=== PATIENT | female | born 1965 | race Caucasian/White ===

== ENCOUNTER → 2017-08-13 | Outpatient (CLI) | payer MEDICARE, OTHER ==
[~2017-08-13] MED LIST: ANASTROZOLE1 MG PO; BACTRIM DS TAB1 EACH PO; BIOTIN; CALCIUM600 MG PO; CLARITIN10 M1 PO; CRANBERRY PO; CRANBERRY450 MG PO; CRESTOR10 MG PO; DEXILANT60 MG PO; EVOXAC30 MG PO; FOLIC ACID PO; FOLIC ACID0.4 MG PO; GABAPENTIN300 MG PO; GABAPENTIN400 MG PO; KEFLEX500 MG PO; LEFLUNOMIDE10 MG PO; LIDOCAINE PATCH TOP; LISINOPRIL10 MG PO; METHOCARBAMOL500 MG PO; METHOCARBAMOL750 MG PO; METOPROLOL SUC100 MG PO; METOPROLOL SUCC50 MG PO; MS CONTIN30 MG PO; NEXIUM40 MG PO; OMEPRAZOLE40 MG PO; PROMETHAZINE HC25 M1 PO; SERTRALINE HCL50 MG PO; SULFASALAZINE500 MG PO; TYLENOL WITH C1 EACH PO; ULTRAM 50MG50 MG PO; VALTREX500 MG PO; VESICARE5 MG PO; VITAMIN B-121000 MCG PO; VITAMIN D1000 UNI1 PO; [UNRECOGNIZED DRUG - OTHER] PO
--- NOTE | 2017-08-13 12:44 | Diagnostic Imaging Report ---
PROCEDURE:X-RAY ABDOMEN - KUB COMPARISON:Patients [facility], DX, ABDOMEN-1VIEW (KUB), 01/18/2017, 7:22. INDICATIONS:calculus of kidney FINDINGS: There is a non-obstructed bowel-gas pattern, with large amount of retained stool, which obscures the renal shadows. Interval removal of previously visualized left double-J internal ureteral stent. No definite calcifications project over the renal shadows, expected course of ureters or bladder. There are no calcifications projected over the renal shadows, expected course of the ureters or bladder. A Stable left phlebolith. No acute bony abnormality. CONCLUSION: Normal abdominal no radiopaque densities project over the genitourinary system. Jose Raul Miller M.D. Dictated by: Jose Raul Miller M.D. on 08/13/2017 at 12:46 Electronically approved by: Jose Raul Miller M.D. on 08/13/2017 at 12:46
== END ==
LOC: RAD 10:35
PROVIDERS: ATTEND Urology
DX: Z87.442 Personal history of urinary calculi (principal)
CPT/HCPCS: 74018

== ENCOUNTER → 2017-12-19 | Outpatient (CLI) | payer MEDICARE, OTHER ==
--- NOTE | 2017-12-19 12:08 | Diagnostic Imaging Report ---
Exam: Radiographs of the abdomen History: Abdominal pain. History of kidney stones. Comparison 12/04/2016 Findings: There is a nonobstructive bowel gas pattern with a moderate amount of retained feces in the colon. Surgical clips are seen in the gallbladder fossa. Punctate right and left renal stones are seen. A small phlebolith is seen in the left pelvis. No acute osseous abnormality. Impression: Punctate right and left renal stones. Signed by: Dr. Byron Dodson M.D. on 12/19/2017 12:04 PM
== END ==
LOC: RAD 11:20
PROVIDERS: ATTEND Urology
DX: N20.0 Calculus of kidney (principal)
CPT/HCPCS: 74018

== ENCOUNTER → 2018-03-17 | Outpatient (CLI) | payer MEDICARE, OTHER ==
--- NOTE | 2018-03-17 11:55 | Diagnostic Imaging Report ---
RADIOGRAPH(S) OF THE ABDOMEN AND PELVIS, 2 view(s) HISTORY: Calculus of kidney, no pain COMPARISON: Abdominal and pelvic radiographs December 19, 2017 and August 13, 2017 FINDINGS: Mild to moderate colonic fecal burden, which somewhat limits sensitivity and specificity for subtle stones. No specific evidence of obstruction or ileus. No definite urinary tract calcification. Stable left pelvic phlebolith. A new 6 mm calcific density projects just to the right of midline at the inferior pelvis. IMPRESSION: 1. No definitive renal calculi, within the limitations of radiographs. 2. A 6 mm right paramedian pelvic calcific density, could reflect radiopaque bowel contents or a urinary tract calculus. Signed by: Dr. Bryan Wilcox D.O., M.M.M. on 03/17/2018 11:52 AM
== END ==
LOC: RAD 10:10
PROVIDERS: ATTEND Urology
DX: N20.0 Calculus of kidney (principal)
CPT/HCPCS: 74018